=== PATIENT | female | born 1940 | race Caucasian/White ===

== ENCOUNTER → 2018-03-19 | Outpatient (CLI) | payer MEDICARE ==
--- NOTE | 2018-03-19 23:23 | MR ---
EXAMINATION TYPE: MR brain wo/w con DATE OF EXAM: 03/19/2018 COMPARISON: NONE HISTORY: Loss of balance. Falls. TECHNIQUE: Multiplanar, multisequence images of the brain and brainstem is performed without and with IV contras t, utilizing 6 mL intravenous . Gadolinium FINDINGS: There is diffuse cerebral cortical atrophy. There is no mass effect nor midline shift. There is no si gn of intracranial hemorrhage. There is increased signal in the periventricular white matter in a violetta ewhat linear distribution. There is thinning of the corpus callosum. The brainstem is intact. Sella t urcica is normal. I see no pathologic enhancement. Cerebellum is intact. IMPRESSION: Cerebral atrophy. Extensive white matter changes around the lateral ventricles could rela te to some transependymal edema. Normal pressure type hydrocephalus is possible. Demyelinating diseas e and chronic small vessel ischemia are not excluded.
== END | disposition home or self-care (01) ==
LOC: RADMRIMAIN 13:47
PROVIDERS: ATTEND Family Medicine
DX: S00.83XA Contusion of other part of head, initial encounter (principal); G31.9 Degenerative disease of nervous system, unspecified; R90.89 Other abnormal findings on diagnostic imaging of central nervous system; M54.5 Low back pain
CPT/HCPCS: 82565; 70553; 36415; A9581

== ENCOUNTER → 2019-02-11 | Outpatient (CLI) | payer MEDICARE ==
--- NOTE | 2019-02-11 15:05 | CT ---
EXAMINATION TYPE: CT shoulder RT wo con DATE OF EXAM: 02/11/2019 COMPARISON: None HISTORY: Fall [address] DLP: 380 mGycm Automated exposure control for dose reduction was used. FINDINGS: There is a comminuted fracture involving the surgical neck extending through the greater tuberosity t o the superior cortex. Maximal displacement measures approximately 4 to 5 mm. There is adjacent surro unding soft tissue edema or hematoma. Bursitis portions of the clavicle and scapula remain intact. Visualized rib cage intact. IMPRESSION: COMMINUTED RIGHT HUMERAL NECK FRACTURE EXTENDING THROUGH THE GREATER TUBEROSITY TO THE SUPERIOR CORTI ANN MARGIN. MAXIMAL DISPLACEMENT 4 TO 5 MM.
== END | disposition home or self-care (01) ==
LOC: RADCTMAIN 13:22
PROVIDERS: ATTEND Orthopaedic Surgery
DX: S42.211A Unspecified displaced fracture of surgical neck of right humerus, initial encounter for closed fracture (principal)

== ENCOUNTER → 2025-01-11 | Outpatient (CLI) | payer MEDICARE ==
[2025-01-11 16:23] LABS: Influenza A Detected (Not Detectd); Influenza B Not Detected (Not Detectd); RSV Not Detected (Not Detectd)
== END | disposition home or self-care (01) ==
LOC: LABWHC1 15:22
PROVIDERS: ATTEND Family Medicine
DX: B89 Unspecified parasitic disease (principal)
CPT/HCPCS: 87636